=== PATIENT | female | born 1960 | race Caucasian/White ===

== ENCOUNTER 2016-08-04 12:26 | Inpatient (IN) ==
--- NOTE | 2016-07-31 21:58 | Discharge Summary ---
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 Will Use oxycodone for breakthrough pain only. Qualifiers: Chronic pain type: other chronic pain Qualified Code(s): G89.29 - Other chronic pain - Discharge Medications Prescriptions: Cyclobenzaprine [Flexeril] 10 mg PO TID PRN #30 tablet PRN Reason: Spasms Home Medications: Albuterol Sulfate [Albuterol Inhaler] 2 puff PO Q4H PRN 10/22/15 [History] Fluticasone/Salmeterol [Advair 500-50 Diskus] 1 puff IH BID 10/22/15 [History] Rivaroxaban [Xarelto] 10 mg PO DAILY 10/22/15 [History] Pravastatin Sodium [Pravachol] 20 mg PO HS 12/07/15 [History] Albuterol Neb [Proventil Neb] 2.5 mg IH Q4HR PRN 30 Days 12/28/15 [Rx] Metoprolol [Lopressor] 25 mg PO BID 06/10/16 [History] Zolpidem [Ambien] 10 mg PO HS 06/10/16 [History] OxyCODONE Immed Rel [Roxicodone 5 MG] 5 mg PO DAILY #20 tablet 08/04/16 [Rx] Oxycodone HCl [Oxaydo] 5 mg PO Q6H PRN 08/04/16 [History] Cyclobenzaprine [Flexeril] 10 mg PO TID PRN #30 tablet 08/07/16 [Rx] Allergies/Adverse Reactions: Allergies codeine Adverse Reaction (Verified 08/04/16 13:25) Nausea morphine Adverse Reaction (Verified 08/04/16 13:25) Vomiting Primary care physician: Tabitha Stallworth, - Patient Status Disposition: Home, Self-Care Condition: Good - Discharge Instructions Follow Up With: Tabitha Stallworth MD [Primary Care Provider] - - Hospital Course Hospital course: Ms. Mckenna is a 55 year old female - Time Spent with Patient Total time spent providing and/or coordinating discharge services: <Aidan Dow - Last Filed: 08/07/16 07:31> Date of Encounter: 08/07/16 Time of Encounter: 07:29 - Discharge Diagnosis (1) Hyperlipidemia Priority: Secondary Status: Chronic Qualifiers: Hyperlipidemia type: unspecified Qualified Code(s): E78.5 - Hyperlipidemia , unspecified (2) Arthritis of knee, left Priority: Primary Status: Acute (3) COPD (chronic obstructive pulmonary disease) Priority: Secondary Status: Chronic Qualifiers: COPD type: unspecified COPD Qualified Code(s): J44.9 - Chronic obstructive pulmonary disease, unspecified (4) Lung mass Priority: Secondary Status: Chronic (5) Factor V deficiency Status: Chronic (6) Hypertension Priority: Secondary Status: Chronic Qualifiers: Hypertension type: essential hypertension Qualified Code(s): I10 - Essential (primary) hypertension (7) Acute blood loss anemia Priority: Primary Status: Acute Primary care physician: Tabitha Stallworth, - Patient Status Functional capacity at discharge: uses cane/walker Overall status at discharge: patient is progressing back to baseline - Hospital Course Hospital course: Ms. Mckenna is a 55 year old female uneventful postop course, received antibiotics and PT. Patient on xeralto for anticoagulation secondary to coagulopathy. DC stable condition - Time Spent with Patient Total time spent providing and/or coordinating discharge services:
--- NOTE | 2016-08-04 13:02 | History & Physical Report ---
Date of Encounter: 08/04/16 Time of Encounter: 13:01 24 Hour HP Update - Instructions Instructions: If the History and Physical is less than 30 days old and was completed prior to A.M. admission and or procedure and has NOT been updated on calendar day of procedure please complete this update prior to performing procedure. - Update Patient reports changes in Medical Condition: No Changes in assessment/condition: No Changes in Medication: No Preop tests/diagnostics Reviewed: Yes Surgery Remains Indicated: Yes Consent for Planned Operative Procedure(s) Verified: Yes - Pre-Operative Checklist Preoperative Checklist Indicated: No Prophylactic Antibiotic Ordered: Yes Is VTE Prophylaxis Indicated?: Yes
[2016-08-04] MEDS ORDERED: CeFAZolin Pre 2,000 MG/100 ML 2,000 MG/100 ML BAG IVPB ONE (13:09)
[2016-08-04] MEDS ORDERED: Ringers Solution, Lactated 1,000 ML IVC SCH ×2 (13:15→17:04)
[2016-08-04] MEDS: Albuterol 2.5 MG/3 ML NEBULIZER IH ONE ×2 (13:24→13:35)
[2016-08-04] MEDS ORDERED: *HR* FentaNYL (PF) 100 MCG/2 ML VIAL ONE (13:30)
[2016-08-04] MEDS ORDERED: *HR* Propofol 200 MG/20 ML VIAL IVP ONE (13:31)
[2016-08-04] MEDS ORDERED: *HR* Midazolam HCl 2 MG/2 ML VIAL ONE (13:31)
[2016-08-04] MEDS ORDERED: Lidocaine -MPF 2% 2 ML VIAL ONE (13:32)
[2016-08-04] MEDS ORDERED: Scopolamine Patch 1.5 MG PATCH.TD72 TD ONE (13:36)
--- NOTE | 2016-08-04 13:37 | Anesthesia Evaluation PreOp ---
Date of Encounter: 08/04/16 Time of Encounter: 13:35 - Past History Planned Operation: l tka Cardiac History: Denies any Significant Hx, HTN, Hyperlipidemia, Other (echo : ef 60, nl rv) Pulmonary History: Asthma, COPD, Other (h/o pe x 5 for thrombophilic d/o) WINE MANAGER History: Denies Any Significant HX, Other (no glaucoma, fibromyalgia, depression) Other Medical History: Renal (one kidney, "functions well"), GERD Anesthesia History: No Prior Anesthetic Complications, Past Anesthesia (PONV, hysterect, appy, l knee, a port , wrist, l4/5, hiatal hernia, r knee arth) Alcohol Use: none Drug use: none Medications and Allergies Albuterol Sulfate [Albuterol Inhaler] 2 puff PO Q4H PRN 10/22/15 [History] Fluticasone/Salmeterol [Advair 500-50 Diskus] 1 puff IH BID 10/22/15 [History] Rivaroxaban [Xarelto] 10 mg PO DAILY 10/22/15 [History] Pravastatin Sodium [Pravachol] 20 mg PO HS 12/07/15 [History] Albuterol Neb [Proventil Neb] 2.5 mg IH Q4HR PRN 30 Days 12/28/15 [Rx] Metoprolol [Lopressor] 25 mg PO BID 06/10/16 [History] Zolpidem [Ambien] 10 mg PO HS 06/10/16 [History] OxyCODONE Immed Rel [Roxicodone 5 MG] 5 mg PO DAILY #20 tablet 08/04/16 [Rx] Oxycodone HCl [Oxaydo] 5 mg PO Q6H PRN 08/04/16 [History] Allergies codeine Adverse Reaction (Verified 08/04/16 13:25) Nausea morphine Adverse Reaction (Verified 08/04/16 13:25) Vomiting - Meds/Allergy Pre-op Review Medications Reviewed: Yes (xarelto off x 4 days) Allergies Reviewed: Yes Beta Blockers on Current Med List: Yes If Beta Blockers taken, Date/Time (Last Dose taken): metoprolol 08/03 19:00 Anesthesia Results - Labs Laboratory Tests 07/25/16 07/25/16 07/25/16 10:38 10:38 10:38 Hgb 12.5 Hct 37.0 Plt Count 199 PT 18.3 H INR 1.7 APTT 49.4 H Sodium 139 Potassium 4.0 Creatinine 0.84 - Imaging EKG: report reviewed (sr, ace) Anesthesia Exam Vital Signs/O2 Sat/Glucose, Most Current Temp Pulse Resp BP Pulse Ox 08/04/16 13:25 18 99 08/04/16 12:40 97.6 F 83 18 136/72 99 O2 Sat Height 1.63 m Height 1.63 m Height 1.63 m Weight 94.801 kg Weight 94.801 kg Weight 94.801 kg O2 Sat by Pulse Oximetry 99 O2 Sat by Pulse Oximetry 99 Vital Signs Temp Pulse Resp BP Pulse Ox 97.6 F 83 18 136/72 99 08/04/16 12:40 08/04/16 12:40 08/04/16 12:40 08/04/16 12:40 08/04/16 12:40 Height: 1.63 Weight: 94 NPO (# of Hours): >8 - HEENT Pupil (Motor): Pupils equal, EOMI Mallampati: II Teeth: Normal Oral Opening: Greater than 3 - WINE MANAGER LOC: Oriented WINE MANAGER Motor: Normal RUE, Normal LUE, Normal RLE, Normal LLE, Normal Face WINE MANAGER Sensory: Normal: RUE, LUE, RLE, LLE, Face - Cardiac Rhythm: Regular Murmur: None - Pulmonary Breath Sounds: bilateral Clear Respiratory Effort: Symmetrical Anesthesia Assess/Plan ASA Score: 2 Modified Juancarlos Scale for Level of Consciousness: Cooperative, oriented, and tranquil Anesthetic Plan: General, Regional Monitoring Plan: Standard Monitors Recovery Plan: PACU
[2016-08-04] MEDS ORDERED: Bupivacaine/Clonidine Syringe 1 EACH SYRINGE ONE (13:54)
[2016-08-04] MEDS ORDERED: ROPIVACAINE HCL/PF 0.5% 30 ML VIAL ONE (14:05)
--- NOTE | 2016-08-04 14:59 | Anesthesia Procedures ---
Date of Encounter: 08/04/16 Time of Encounter: 14:05 Procedures: Anesthesia - Nerve Block Procedure Date: 08/04/16 Time: 14:05 Allergies/Adv Reactions: codeine Adverse Reaction (Verified 08/04/16 13:25) Nausea morphine Adverse Reaction (Verified 08/04/16 13:25) Vomiting Pre-op Diagnosis: left knee oa Surgical Procedure: left tka Checklist: Correct Patient Identifier ( ), Correct procedure, History checked Correct side: Left Blood Thinner: Yes Monitor Applied: EKG, BP, Pulse Oximetry Supplemental Oxygen via Nasal Cannula (L/min): 2 Sedation: Versed (mg): 2 Sedation: Fentanyl (mcg): 100 Indication: Post Op Analgesia Block Type: Femoral, Other (iPACK) Catheter placed: No Sterile Technique: Yes Ultrasound used: Yes Anatomy identified: Yes Visual spread of Local: Yes Neuro Stimulation: No Prep: Chlorhexadine Needle: 22 x 50 mm Stimuplex (femoral, 30cc 0.5% ropiv), 21 x 150 mm Stimuplex ( iPACK 20cc 0.25% bupiv) Local: 0.25% Bupivicaine w/Clonidine 20 mcg/cc, Ropivacaine Volume (cc): 50 Number of Attempts: 1 Complications: None/effective block Vitals: Vital Signs/O2 Sat/Glucose, Most Recent Temp Pulse Resp BP Pulse Ox 97.6 F 98 16 151/72 99 08/04/16 12:40 08/04/16 14:08 08/04/16 14:08 08/04/16 14:08 08/04/16 14:08 Vital Signs/O2 Sat, Most Current Temp Pulse Resp BP Pulse Ox 97.6 F 98 16 151/72 99 08/04/16 12:40 08/04/16 14:08 08/04/16 14:08 08/04/16 14:08 08/04/16 14:08 Comments: peripheral nerve blocks under ultrasound for postoperative pain per dr coello request
[2016-08-04] MEDS ORDERED: Naloxone 0.4 MG/ML INJ IVP PRN ×2 (15:09→17:04)
[2016-08-04] MEDS ORDERED: *HR* Labetalol 100 MG/20 ML MDV IVP PRN (15:09)
--- NOTE | 2016-08-04 15:13 | Orthopedic Operative Note ---
Date of procedure: 08/04/16 Pre-op diagnosis: Left knee arthritis Post-op diagnosis: same Procedure: Procedure: Left Total knee replacement Estimated blood loss: 200 cc Hardware: Arthrex Femur: 6 Tibia: 4 PS insert: 10 Patella:34 Exam Under anesthesia: Full flexion full extension no instability Procedural Notes:grade 3 OA medial and patellofemoral joint Operative procedure: The patient was brought to the operating room and placed on the operating room table. After general anesthesia was administered the operative knee was examined. Findings were noted in the exam under anesthesia. The operative extremity was prepped and draped in sterile surgical fashion. The patient received IV antibiotics prior to skin incision. A standard midline incision was made centered over the patella. The incision was made through the skin and subcutaneous tissue. A medial parapatellar tendon approach was performed. Care was taken to preserve tissue along the medial aspect of the patella. And to protect the patella tendon. The deep MCL was released off the medial tibia. The infra patella fat pad was excised. Knee was brought into flexion. Patient noted to have grade 3 OA medial and patellofemoral joint. The entry hole was made for the intramedullary femoral guide. The guide was seated in 6 degrees of valgus. Anterior cut was made followed by the distal cut. The ACL the PCL the medial and the lateral menisci were excised. The tibia was subluxed forward. The entry hole was made for the intramedullary tibial guide. Guide was seated to resect 2 mm off the more abnormal side. The knee was brought into flexion the distal femur was sized 6. The femoral guide was seated , the anterior cut was made followed by the posterior condylar cut, followed by the chamfer cuts. The finishing guide was seated the box cut was made and the lug holes were drilled. The tibia was sized 4, the tibial tray was seated and prepared with the large drill followed by the fin cutter. Trial reduction revealed full extension no varus valgus instability with the appropriate 10 PS Audrey. The patella was everted and cut was made at the level of the insertion of the quadriceps and patella tendon. The patella was sized 34 the guide was seated and the lug holes are drilled. Trial reduction revealed excellent patella tracking. All trial components were removed all bony surfaces were irrigated. The tibia was cemented first followed by the femur. The 10 PS Audrey was seated and the knee was brought into full extension. The patella was cemented and held in place with the patellar holding clamp. After the cement had hardened, the knee sat for 2 minutes with a Betadine saline solution. The knee was then irrigated out with 2 L of pulse irrigation. The extensor mechanism was closed with #2 FiberWire suture and #2 PDS suture. The subcutaneous tissue was then irrigated and closed deep with #1 PDS suture superficially with 0 PDS suture and skin was closed with skin eli. The patient was then placed in a sterile dressing and a postoperative brace extubated and transferred to recovery room in stable condition. Anesthesia: GETA Surgeon: Aidan Dow Condition: stable Disposition: PACU
[2016-08-04] MEDS: *HR* HYDROmorphone (PF) 1 MG/ML SYRINGE IVP PRN ×6 (15:23→21:34)
[2016-08-04 15:48] LABS: Hemoglobin 10.9 g/dL (11.5-15.4)
[2016-08-04] MEDS: *HR* Promethazine 25 MG/ML VIAL IVP PRN ×2 (15:55→16:01)
[2016-08-04] MEDS ORDERED: Acetaminophen IV 1,000 MG/100 ML INFUS..BTL IVPB ONE (15:57)
[2016-08-04] MEDS ORDERED: *HR* HYDROmorphone (PF) 1 MG/ML SYRINGE IVP PRN (16:13)
--- NOTE | 2016-08-04 16:20 | Anesthesia Evaluation Post Op ---
Date of Encounter: 08/04/16 Time of Encounter: 16:19 - Vital Signs Vital Signs: Vital Signs/O2 Sat/Glucose, Most Current Temp Pulse Resp BP Pulse Ox 08/04/16 16:05 69 14 92/57 99 08/04/16 15:55 66 14 94/56 98 08/04/16 15:45 97.6 F 70 14 94/56 99 08/04/16 15:35 63 16 86/54 98 08/04/16 15:25 77 16 102/71 97 08/04/16 15:15 97.3 F L 80 16 133/81 98 08/04/16 14:08 98 16 151/72 99 08/04/16 13:25 18 99 08/04/16 12:40 97.6 F 83 18 136/72 99 - Lungs Lungs: Clear Ascult./Percussion - Airway Airway: Non-obstructed - Cardiovascular Regular Rate - Mental Status Mental Status: Alert & Oriented, Answers Appropriately - Pain Pain Scale: 3 - Nausea Vomiting Nausea Vomiting: Not Present - Hydration Hydration: Tolerates oral liquids - Discharge PostOp Status: Discharge Patient to home
[2016-08-04] MEDS ORDERED: MOM Conc 10 ML UD.LIQ PO PRN (17:04)
[2016-08-04] MEDS ORDERED: Sennosides 8.6 MG TABLET PO PRN (17:04)
[2016-08-04] MEDS ORDERED: Albuterol 2.5 MG/3 ML NEBULIZER IH PRN (17:04)
[2016-08-04] MEDS ORDERED: Temazepam 15 MG CAPSULE PO PRN (17:04)
[2016-08-04] MEDS ORDERED: *HR* OxyCODONE Immed Rel 5 MG TABLET PO PRN (17:04)
[2016-08-04] MEDS: *HR* OxyCODONE Immed Rel 5 MG TABLET PO PRN (17:35)
[2016-08-04] MEDS: Ondansetron 4 MG/2 ML VIAL IVP PRN (17:38)
[2016-08-04] MEDS ORDERED: *HR* Enoxaparin 30 MG/0.3 ML SYRINGE SQ SCH (18:00)
[2016-08-04] MEDS: Budesonide/Formoterol 160/4.5 MDI IH SCH (20:23)
[2016-08-04] MEDS: ceFAZolin 2,000 MG in D5% in Water 100 ML IVPB SCH (20:41)
[2016-08-05] MEDS: *HR* OxyCODONE Immed Rel 5 MG TABLET PO PRN ×4 (01:08→23:30)
[2016-08-05] MEDS: Ondansetron 4 MG/2 ML VIAL IVP PRN ×2 (04:01→11:14)
[2016-08-05] MEDS: *HR* HYDROmorphone (PF) 1 MG/ML SYRINGE IVP PRN ×6 (04:02→22:11)
[2016-08-05] MEDS: ceFAZolin 2,000 MG in D5% in Water 100 ML IVPB SCH (04:59)
[2016-08-05 07:01] LABS: Hematocrit 29.1 % (35.3-44.9); Hemoglobin 9.4 g/dL (11.5-15.4)
[2016-08-05 07:09] LABS: BUN/Creatinine Ratio 24 (6-26); Blood Urea Nitrogen 20 mg/dL (7-20); Carbon Dioxide 23 mEq/L (19-29); Chloride 104 mEq/L (98-109); Glucose 148 mg/dL (70-99); Osmolality,Calculated 287 (280-300); Potassium 4.4 mEq/L (3.5-4.5); Sodium 136 mEq/L (136-145); eGFR For African Americans > 60 (> 60); eGFR For Non-African Americans > 60 (> 60)
[2016-08-05] MEDS: *HR* Rivaroxaban 10 MG TABLET PO SCH (08:04)
--- NOTE | 2016-08-05 08:37 | Orthopedics Progress Note ---
Date of Encounter: 08/05/16 Time of Encounter: 08:37 - Assessment and Plan (1) Hyperlipidemia Current Visit: Yes Status: Chronic Qualifiers: Hyperlipidemia type: unspecified Qualified Code(s): E78.5 - Hyperlipidemia , unspecified (2) Arthritis of knee, left Current Visit: Yes Status: Acute (3) COPD (chronic obstructive pulmonary disease) Current Visit: No Status: Chronic Qualifiers: COPD type: unspecified COPD Qualified Code(s): J44.9 - Chronic obstructive pulmonary disease, unspecified (4) Lung mass Current Visit: No Status: Chronic (5) Factor V deficiency Current Visit: No Status: Chronic (6) Hypertension Current Visit: No Status: Chronic Qualifiers: Hypertension type: essential hypertension Qualified Code(s): I10 - Essential (primary) hypertension Subjective Interval history: Patient was seen this morning doing well without complaints. Afebrile vital signs stable. Operative extremity: Neurovascularly intact Dressing clean dry and intact Calves nontender Assessment and plan: Continue with postoperative care hb 9.4 Objective Vital signs: Vital Signs Temp Pulse Resp BP Pulse Ox 08/05/16 08:17 98 08/05/16 07:15 98.3 F 68 14 105/70 98 08/05/16 04:29 98.3 F 67 16 100/67 94 L 08/05/16 00:34 97.5 F L 67 15 113/70 99 08/04/16 20:23 16 99 08/04/16 19:05 97.5 F L 74 17 101/64 99 08/04/16 18:00 97.4 F L 69 16 100/71 100 08/04/16 17:30 97.5 F L 70 16 108/68 99 08/04/16 17:05 97.6 F 67 14 136/84 99 08/04/16 16:45 97.8 F 71 10 100/50 100 08/04/16 16:30 69 12 95/53 98 08/04/16 16:15 97.8 F 73 11 101/56 95 08/04/16 16:05 69 14 92/57 99 08/04/16 15:55 66 14 94/56 98 08/04/16 15:45 97.6 F 70 14 94/56 99 08/04/16 15:35 63 16 86/54 98 08/04/16 15:25 77 16 102/71 97 08/04/16 15:15 97.3 F L 80 16 133/81 98 08/04/16 14:08 98 16 151/72 99 08/04/16 13:25 18 99 08/04/16 12:40 97.6 F 83 18 136/72 99 Intake and Output 08/04/16 08/05/16 08/05/16 23:59 07:59 15:59 Intake Total 200 / 200 100 / 100 Balance 200 / 200 100 / 100 Intake: IV Fluids 200 / 200 100 / 100 Ofirmev 1,000 mg In 100 100 / 100 ml @ 400 mls/hr IVPB ONCE ONE Rx#:[id number] Ancef 2,000 MG In 100 / 100 100 / 100 Dextrose 5% 100 ML @ 200 mls/hr IVPB Q8H [facility] Rx#: [id number] - Labs CBC & BMP: 08/05/16 06:45 08/05/16 06:45 Labs: Abnormal lab results Hgb 9.4 g/dL (11.5-15.4) L D 08/05/16 06:45 Hct 29.1 % (35.3-44.9) L 08/05/16 06:45 Glucose 148 mg/dL (70-99) H 08/05/16 06:45 Calcium 8.0 mg/dL (8.6-10.8) L 08/05/16 06:45 - VTE Documentation of Mechanical Device: Venous foot pump, device Consult Discharge Plan - Plan Referrals: Tabitha Stallworth MD [Primary Care Provider] -
[2016-08-05] MEDS: Budesonide/Formoterol 160/4.5 MDI IH SCH ×2 (12:08→21:16)
[2016-08-05] MEDS: Acetaminophen 325 MG TABLET PO PRN (21:04)
[2016-08-06] MEDS: *HR* HYDROmorphone (PF) 1 MG/ML SYRINGE IVP PRN ×5 (02:10→20:30)
[2016-08-06] MEDS: *HR* OxyCODONE Immed Rel 5 MG TABLET PO PRN ×5 (04:41→23:39)
[2016-08-06 05:11] LABS: Hematocrit 27.5 % (35.3-44.9); Hemoglobin 8.9 g/dL (11.5-15.4)
[2016-08-06 05:30] LABS: BUN/Creatinine Ratio 21 (6-26); Blood Urea Nitrogen 16 mg/dL (7-20); Calcium 8.4 mg/dL (8.6-10.8); Carbon Dioxide 26 mEq/L (19-29); Chloride 102 mEq/L (98-109); Glucose 116 mg/dL (70-99); Osmolality,Calculated 282 (280-300); Potassium 4.4 mEq/L (3.5-4.5); Sodium 135 mEq/L (136-145); eGFR For African Americans > 60 (> 60); eGFR For Non-African Americans > 60 (> 60)
--- NOTE | 2016-08-06 06:42 | Orthopedics Progress Note ---
Date of Encounter: 08/06/16 Time of Encounter: 06:41 - Assessment and Plan (1) Hyperlipidemia Current Visit: Yes Status: Chronic Qualifiers: Hyperlipidemia type: unspecified Qualified Code(s): E78.5 - Hyperlipidemia , unspecified (2) Arthritis of knee, left Current Visit: Yes Status: Acute (3) COPD (chronic obstructive pulmonary disease) Current Visit: No Status: Chronic Qualifiers: COPD type: unspecified COPD Qualified Code(s): J44.9 - Chronic obstructive pulmonary disease, unspecified (4) Lung mass Current Visit: No Status: Chronic (5) Factor V deficiency Current Visit: No Status: Chronic (6) Hypertension Current Visit: No Status: Chronic Qualifiers: Hypertension type: essential hypertension Qualified Code(s): I10 - Essential (primary) hypertension Subjective Interval history: Patient was seen this morning calf pain Afebrile vital signs stable. Operative extremity: Neurovascularly intact Dressing clean dry and intact Calves nontender Assessment and plan: Continue with postoperative care doppler today Objective Vital signs: Vital Signs Temp Pulse Resp BP Pulse Ox 08/06/16 05:10 97.9 F 80 15 106/64 96 08/06/16 00:15 99 F 86 15 111/72 94 L 08/05/16 21:16 14 99 08/05/16 20:39 98.2 F 90 16 93/63 99 08/05/16 18:18 98 08/05/16 14:55 98.4 F 73 16 105/72 98 08/05/16 12:08 18 95 08/05/16 11:31 98.4 F 81 16 113/73 95 08/05/16 08:17 98 08/05/16 07:15 98.3 F 68 14 105/70 98 Intake and Output 08/05/16 08/05/16 08/06/16 15:59 23:59 07:59 Intake Total 900 / 900 425 / 425 Balance 900 / 900 425 / 425 Intake: Oral 900 / 900 425 / 425 Other: # Voids 1 - Labs CBC & BMP: 08/06/16 04:55 08/06/16 04:55 Labs: Abnormal lab results Hgb 8.9 g/dL (11.5-15.4) L 08/06/16 04:55 Hct 27.5 % (35.3-44.9) L 08/06/16 04:55 Sodium 135 mEq/L (136-145) L 08/06/16 04:55 Glucose 116 mg/dL (70-99) H 08/06/16 04:55 Calcium 8.4 mg/dL (8.6-10.8) L 08/06/16 04:55 - VTE Documentation of Mechanical Device: Venous foot pump, device Consult Discharge Plan - Plan Referrals: Tabitha Stallworth MD [Primary Care Provider] -
[2016-08-06] MEDS: Budesonide/Formoterol 160/4.5 MDI IH SCH ×2 (08:19→20:25)
[2016-08-06] MEDS: *HR* Rivaroxaban 10 MG TABLET PO SCH (09:07)
[2016-08-06] MEDS: Gabapentin 300 MG CAPSULE PO SCH ×3 (09:07→20:31)
[2016-08-06] MEDS: Ondansetron 4 MG/2 ML VIAL IVP PRN (09:11)
[2016-08-07] MEDS: *HR* HYDROmorphone (PF) 1 MG/ML SYRINGE IVP PRN ×2 (04:41→19:35)
[2016-08-07 04:47] LABS: Hematocrit 25.4 % (35.3-44.9); Hemoglobin 8.4 g/dL (11.5-15.4)
[2016-08-07 04:56] LABS: BUN/Creatinine Ratio 16 (6-26); Blood Urea Nitrogen 13 mg/dL (7-20); Calcium 8.2 mg/dL (8.6-10.8); Carbon Dioxide 25 mEq/L (19-29); Chloride 98 mEq/L (98-109); Glucose 125 mg/dL (70-99); Osmolality,Calculated 276 (280-300); Potassium 4.2 mEq/L (3.5-4.5); Sodium 132 mEq/L (136-145); eGFR For African Americans > 60 (> 60); eGFR For Non-African Americans > 60 (> 60)
--- NOTE | 2016-08-07 07:33 | Orthopedics Progress Note ---
Date of Encounter: 08/07/16 Time of Encounter: 07:32 - Assessment and Plan (1) Hyperlipidemia Current Visit: Yes Status: Chronic Qualifiers: Hyperlipidemia type: unspecified Qualified Code(s): E78.5 - Hyperlipidemia , unspecified (2) Arthritis of knee, left Current Visit: Yes Status: Acute (3) COPD (chronic obstructive pulmonary disease) Current Visit: No Status: Chronic Qualifiers: COPD type: unspecified COPD Qualified Code(s): J44.9 - Chronic obstructive pulmonary disease, unspecified (4) Lung mass Current Visit: No Status: Chronic (5) Factor V deficiency Current Visit: No Status: Chronic (6) Hypertension Current Visit: No Status: Chronic Qualifiers: Hypertension type: essential hypertension Qualified Code(s): I10 - Essential (primary) hypertension (7) Acute blood loss anemia Current Visit: Yes Status: Acute Subjective Interval history: Patient was seen this pain better doppler negative Afebrile vital signs stable. Operative extremity: Neurovascularly intact Dressing clean dry and intact Calves nontender Assessment and plan: Continue with postoperative care HCT 25.4 asymptomatic dc today Objective Vital signs: Vital Signs Temp Pulse Resp BP Pulse Ox 08/07/16 06:41 97.6 F 93 16 118/73 95 08/07/16 04:30 100 117/76 94 L 08/06/16 23:54 97.8 F 111 18 111/68 96 08/06/16 20:25 17 99 08/06/16 20:00 97.7 F 114 18 117/75 97 08/06/16 15:07 99.1 F 91 16 102/70 93 L 08/06/16 10:36 98.7 F 88 16 138/80 96 08/06/16 08:20 16 96 08/06/16 06:55 98.7 F 80 16 121/79 96 Intake and Output 08/06/16 08/06/16 08/07/16 15:59 23:59 08:59 Intake Total 200 / 200 Balance 200 / 200 Intake: Oral 200 / 200 Other: # Voids 1 1 - Labs CBC & BMP: 08/07/16 04:30 08/07/16 04:30 Labs: Abnormal lab results Hgb 8.4 g/dL (11.5-15.4) L 08/07/16 04:30 Hct 25.4 % (35.3-44.9) L 08/07/16 04:30 Sodium 132 mEq/L (136-145) L 08/07/16 04:30 Glucose 125 mg/dL (70-99) H 08/07/16 04:30 Calculated Osmolality 276 (280-300) L 08/07/16 04:30 Calcium 8.2 mg/dL (8.6-10.8) L 08/07/16 04:30 - VTE Documentation of Mechanical Device: Venous foot pump, device Consult Discharge Plan - Plan Referrals: Tabitha Stallworth MD [Primary Care Provider] - Prescriptions: Cyclobenzaprine [Flexeril] 10 mg PO TID PRN #30 tablet PRN Reason: Spasms
[2016-08-07] MEDS: *HR* Rivaroxaban 10 MG TABLET PO SCH (08:00)
[2016-08-07] MEDS: Gabapentin 300 MG CAPSULE PO SCH ×3 (08:00→21:46)
[2016-08-07] MEDS: Budesonide/Formoterol 160/4.5 MDI IH SCH ×2 (10:08→20:31)
[2016-08-07] MEDS ORDERED: 0.9 % Sodium Chloride 250 ML IVC PRN (10:13)
[2016-08-07] MEDS ORDERED: Furosemide 20 MG/2 ML VIAL IVP PRN (11:55)
[2016-08-07] MEDS: *HR* OxyCODONE Immed Rel 5 MG TABLET PO PRN ×3 (12:25→21:45)
--- NOTE | 2016-08-07 15:07 | Venous Imaging Report ---
LE Venous Duplex Patient Name:Marium Mckenna Order Number:[id number] Procedure Date:08/06/2016 Date:1960ge:55 yrs Gender:Female Location:[facility] Room #: [id number] Materials Technician:Chana Salazar RVT Referring MD:Aidan Dow MD director of critical care:Tabitha Stallworth MD Reading MD:Deion Moy MD , FACS Secondary Indications: Risk Factors Yes/No Previous surgery Yes Anticoagulants Yes Hx of PE Yes Impressions: Left lower extremity: normal superficial and deep exam. Right lower extremity: normal contralateral exam. Recommendations: Test completed on 08/06/2016 at 2:20:00 pm. Critical findings reported to Luis GIL in person at 2:20:00 pm on 08/06/2016 by Chana Salazar RVT. Findings Venous Duplex Results: Right: Venous imaging of the lower extremity reveals full patency and normal vessel compressibility of the right common femoral. Doppler signals in the evaluated veins were normal. Left: Venous imaging of the lower extremity reveals full patency and normal vessel compressibility of the left distal iliac, left common femoral, left superficial femoral, left popliteal, left posterior tibial, left peroneal, left great saphenous and left lesser saphenous. Doppler signals in the evaluated veins were normal. Prior Study: No prior study available for comparison. Updated by Deion Moy MD, FACS on 08/07/2016 3:03:42 PM Deion Moy MD electronically signed on 08/07/2016 3:04:19 PM with status of Final
[2016-08-07] MEDS: Acetaminophen 325 MG TABLET PO PRN (18:12)
[2016-08-07 19:33] LABS: Hematocrit 30.3 % (35.3-44.9)
[2016-08-07 19:34] LABS: Hemoglobin 10.1 g/dL (11.5-15.4)
[2016-08-08] MEDS: *HR* HYDROmorphone (PF) 1 MG/ML SYRINGE IVP PRN ×2 (00:42→06:45)
[2016-08-08 01:18] LABS: Bilirubin,Urine Negative (Negative); Blood,Urine Negative (Negative); Clarity,Urine Clear (Clear); Color,Urine Yellow (Yellow); Glucose,Urine (UA) Normal (Normal); Ketones,Urine Negative (Negative); Leukocyte Esterase,Urine Negative (Negative); Nitrite,Urine Negative (Negative); PH,Urine 5.5 pH Units (5.0-8.0); Protein,Urine Negative (Neg-Trace); Urobilinogen,Urine Normal (Normal)
[2016-08-08 01:29] LABS: Bacteria,Urine None Seen per hpf (None-Few); Hyaline Casts,Urine None Seen per lpf (None-Few); RBC,Urine 0-3 per hpf (0-3); Squamous Epithelial Cell,Urine Few per lpf (None-Few); WBC,Urine 0-3 per hpf (0-3)
[2016-08-08] MEDS: *HR* OxyCODONE Immed Rel 5 MG TABLET PO PRN ×2 (04:03→08:14)
--- NOTE | 2016-08-08 06:41 | Orthopedics Progress Note ---
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 Operative extremity: Neurovascularly intact Dressing clean dry and intact Calves nontender Assessment and plan: Continue with postoperative care when patient began PT became symptomatic to anemia, dc held patient received blood dc hct 30 dc today Objective Vital signs: Vital Signs Temp Pulse Resp BP Pulse Ox 08/08/16 06:32 98.6 F 102 20 134/75 100 08/08/16 04:52 98.4 F 90 15 112/70 97 08/08/16 00:02 99.3 F 102 14 95/59 98 08/07/16 20:31 14 98 08/07/16 20:25 98.4 F 108 12 112/62 96 08/07/16 19:49 100.7 F H 120 14 133/78 98 08/07/16 19:08 100.7 F H 120 14 133/78 98 08/07/16 18:08 100.2 F H 123 16 141/80 98 08/07/16 17:53 99.7 F H 121 15 121/78 96 08/07/16 17:05 100.9 F H 111 14 117/73 100 08/07/16 15:46 99.6 F 106 10 133/76 100 08/07/16 14:26 98.9 F 109 12 128/73 97 08/07/16 14:11 99.4 F 111 14 131/82 98 08/07/16 10:08 16 118/73 102 H 08/07/16 06:41 97.6 F 93 16 118/73 95 Intake and Output 08/07/16 08/07/16 08/08/16 15:59 23:59 07:59 Intake Total 0 / 0 421 / 421 300 / 300 Output Total 300 / 300 Balance 0 / 0 421 / 421 0 / 0 Intake: Oral 300 / 300 Blood Product 0 / 0 421 / 421 Rbcs Leuko Poor As-1 0 / 0 294 / 294 Unit [id number] Rbcs Leuko Poor As-1 127 / 127 Unit [id number] Output: Urine 300 / 300 Other: # Voids 1 1 - Labs CBC & BMP: 08/07/16 19:30 08/07/16 04:30 Labs: Abnormal lab results Hgb 10.1 g/dL (11.5-15.4) L D 08/07/16 19:30 Hct 30.3 % (35.3-44.9) L 08/07/16 19:30 Sodium 132 mEq/L (136-145) L 08/07/16 04:30 Glucose 125 mg/dL (70-99) H 08/07/16 04:30 Calculated Osmolality 276 (280-300) L 08/07/16 04:30 Calcium 8.2 mg/dL (8.6-10.8) L 08/07/16 04:30 - VTE Documentation of Mechanical Device: Venous foot pump, device Consult Discharge Plan - Plan Additional Instructions: Discharge Instructions: Total Knee Replacement Please call [facility] ([phone]), your Primary Care Physician, or report to the Emergency Room if you have any of the following symptoms: Nausea, vomiting, fever greater that 101.5, swelling, chest pain, shortness of breath, increased pain/redness/drainage/odor for your incision site, numbness/ tingling, or any other concerning symptoms. ACTIVITY:Weight-bearing as tolerated. You may progress off support (cruthches or walker) as tolerated. MEDICATIONS: Upon discharge resume your home medications. Take all the medications as prescribed. Take a stool softener if taking narcotic pain medications. Stool softeners are only effective if you drink enough fluids. Drink 6-8 glass of water or fluids a day, unless this is not allowed for another health problem. Despite using stool softeners, if you haven't had a bowel movement in 3 days, please switch to a gentle laxative. Gentle laxatives are sold over the counter. You should have a bowel movement within 24 hours, if not call the office. You will be discharged from the hospital with a prescription for pain medication. You are encouraged to decrease the use of narcotic pain medication as tolerated. Should you require a refill, please call the office. [facility] prescribes narcotic pain medication for only 4-6 weeks after surgery. If you require pain medication beyond this time periord, you may be referred to your Primary Care Physician or to the Pain Clinic for further evaluation. Plan ahead for refills on pain medication as many narcotics either need to be picked up at the office or mailed. It is best to call 48-72 hours in advance of needing a prescription refill so you don't run out of medication. To help control the post-operative pain, you may take NSAIDs (Aleve,Advil, Motrin, ibuprofen, naprosyn) or Tylenol as prescribed on the bottle in addition to the pain medication. ANTICOAGULATION (blood thinners): Continue your Aspirin, Lovenox or Coumadin as prescribed to help prevent a blood clot in the leg or in the lungs. As long as your incision remains dry and you tolerate the NSAIDs (Aleve, Advil, Motrin, ibuprofen, naprosyn), it is OK to use the NSAIDS while you are taking your anticoagulation medication. Should your incision start to drain, stop the NSAID and contact our office. Common symptoms of blood clot in the legs include: localized pain, swelling, calf tenderness, redness or discoloration of the skin. Blood clot in the lung symptoms include: shortness of breath, rapid pulse, sweating, and chest pain that worsens with deep breathing, coughing up blood, lightheadedness, feelings of anxiety. If you experience any of these symptoms notify your physician immediately, go to the emergency room, or if having trouble breathing, call 911. WOUND CARE: Leave the dressing on for 7 days. You may change the dressing if it becomes saturated greater than 50%. You can shower but not a tub bath or submerge your incision in water. Wash your hands with antibacterial soap, rinse and dry prior to any wound care. If you have eli the visiting nurse or rehab facility can remove the stapes 10-14 days after surgery and place steri- strips across the wound. Leave the steri-strips in place until they fall off on their won. You may let water from the shower run on top of the steri-stirips. If you do not have a visiting nurse or rehab facility, you will need to return to the office at 10-14 days for the eli to be removed. FOLLOW-UP: Please follow up with your surgeon in the orthopedic clinic in 4 weeks from the day of surgery. If you have eli that need to be removed, you will need to come back to the office in 10-14 days from the day of surgery. Referrals: Tabitha Stallworth MD [Primary Care Provider] - Prescriptions: Cyclobenzaprine [Flexeril] 10 mg PO TID PRN #30 tablet PRN Reason: Spasms
[2016-08-08] MEDS: *HR* Rivaroxaban 10 MG TABLET PO SCH (08:13)
[2016-08-08] MEDS: Gabapentin 300 MG CAPSULE PO SCH (08:13)
[2016-08-08 10:38] VITALS: BP 105/61
[2016-08-08] MEDS: Budesonide/Formoterol 160/4.5 MDI IH SCH (10:40)
--- NOTE | 2016-08-08 15:38 | Electrocardiograph Report ---
[place] [address] Test Date: 2016-08-07 Pat Name: Marium Mckenna Department: 114 Room: [facility] Gender: F Backbreaker: : 1960 Requested By: Aidan Dow Order Number: [id number] Reading MD: Ambrose Ro MD Measurements Intervals [place] Rate: 124 P: 49 RI: 146 QRS: -24 QRSD: 107 T: 65 QT: 425 QTc: 498 Interpretive Statements SINUS TACHYCARDIA BORDERLINE LEFT AXIS DEVIATION VOLTAGE CRITERIA FOR LVH Poor R wave progression Electronically Signed On 08-08-2016 15:36:59 EDT by Ambrose Ro MD
== END 2016-08-08 10:55 | disposition home or self-care (01) | DRG 470 ==
LOC: SAMDAY 12:26 → 3NENU 16:56
PROVIDERS: ADMIT Orthopaedic Surgery; ATTEND Orthopaedic Surgery

== ENCOUNTER 2017-10-20 20:43 | Inpatient (IN) ==
[2017-10-20] MEDS ORDERED: 0.9 % Sodium Chloride 500 ML ONE (23:05)
[2017-10-21] MEDS ORDERED: Naloxone 0.4 MG/ML INJ IVP PRN ×2 (00:45→00:53)
[2017-10-21] MEDS ORDERED: Ondansetron 4 MG/2 ML VIAL IVP PRN (00:48)
[2017-10-21] MEDS ORDERED: Acetaminophen 325 MG TABLET PO PRN (00:53)
[2017-10-21] MEDS ORDERED: Isovue-370 500 ML INFUS..BTL IV ONE (00:57)
--- NOTE | 2017-10-21 01:02 | Internal Med History&Physical ---
Date of Encounter: 10/21/17 Time of Encounter: 00:58 Internal Medicine - H&P: HPI Chief complaint: Chest pain Admitted From: Hospital to Hospital Transfer Plans for Post Hospital Care: Home History of present illness: Ms. Mckenna is a 57 year old female history of factor V Leiden, recurrent PEs on anticoagulation, hyperlipidemia, hypertension presents for evaluation of chest pain. Patient was transferred from [facility] emergency department. Patient describes having sharp retrosternal chest pain that started at rest around 10: 00 this morning. Patient noted that the pain is been persistent since then. Patient notes the pain radiates to her neck, her back in her shoulder. Patient notes the pain is worse with deep inspiration. Patient reports some nausea but no vomiting. Patient also noted some diaphoresis. Patient denies any shortness of breath. Patient denies any abdominal pain. No fevers or cough. Patient states the pain is worse when she lays back. Patient denies a history of heart attacks or stents. Patient states that her last PE was diagnosed 3 or 4 years ago when she was on Coumadin and since then has been on Xarelto. Patient does not follow with hematology here. Her last dose Xarelto last night and is due for her evening dose tonight. Patient states at [facility] they tentatively do a CT scan of the chest but the peripheral IV was not adequate. Patient states that the nitroglycerin did not significantly help with her chest pain. Patient requested transfer to [place]. At the time of my evaluation, the patient was resting. Patient continues to complain of pain. Patient does have a nitroglycerin infusion going. Past Med Surg Social Fam HX - Past Medical History Medical history: arthritis, COPD, DVT, fibromyalgia, GERD, hypertension, pulmonary embolus, venous stasis, other Psychiatric history: depression - Past Surgical History Surgical History: appendectomy, herniorrhaphy, hysterectomy, orthopedic, other, other - Social History Smoking Status: Former smoker Smokeless Tobacco Status: No Alcohol use: none Drug use: none - Family History Mother Family Member Ethnicity: Non- Living Status: Still Living Hx Family Cardiac Disorders: Yes Hx Family Respiratory Disorders: No Hx Family Cancer: No Hx Family Endocrine Disorder: Yes Hx Family Neuromuscular Disorders: Yes Hx Family Neurologic Disorders: Yes Hx Family HEENT Disorders: No Hx Family Autoimmune Disorders: No Internal Medicine - H&P: Meds Amitriptyline [Elavil] 25 mg PO HS 04/20/17 [History] Atorvastatin [Lipitor] 40 mg PO HS 09/15/16 [History] Fluticasone/Vilanterol [Breo Ellipta 200-25 Mcg INH] 1 puff IH DAILY 09/15/16 [ History] Gabapentin [Neurontin] 800 mg PO TID 09/15/16 [History] Levalbuterol Tartrate [Xopenex Hfa] 2 puff IH Q6H PRN 09/15/16 [History] Lisinopril/Hydrochlorothiazide [Zestoretic 20-25 mg Tablet] 1 each PO DAILY [History] Metoprolol [Lopressor] 25 mg PO BID 09/15/16 [History] Ondansetron HCl [Zofran] 4 mg PO Q8H PRN 09/15/16 [History] OxyCODONE/APAP 10/325 [Percocet 10/325 MG] 1 each PO Q4HR PRN 09/15/16 [History] Rivaroxaban [Xarelto] 20 mg PO DAILY 09/15/16 [History] Sertraline [Zoloft] 100 mg PO DAILY 09/15/16 [History] Umeclidinium [place] [Incruse Ellipta] 1 puff IH DAILY 09/15/16 [History] Zolpidem [Ambien] 10 mg PO HS 09/15/16 [History] raNITIdine HCl [Zantac] 150 mg PO BID 09/15/16 [History] 3 Allergy/AdvReac Type Severity Reaction Status Date / Time codeine AdvReac Nausea Verified 09/15/16 12:59 morphine AdvReac Vomiting Verified 09/15/16 12:59 All Systems PM: A 10-system review of systems was performed and is negative for pertinent findings except as documented above in the HPI. - Constitutional Constitutional: as per HPI, no chills, no fever(s) - EENT Eyes: as per HPI Ears: as per HPI - Cardiovascular Cardiovascular ROS IM: as per HPI, chest pain, palpitations, no dyspnea, no dyspnea on exertion - Respiratory Respiratory: as per HPI, no cough, no dyspnea, no hemoptysis - Gastrointestinal Gastrointestinal: as per HPI - Genitourinary Genitourinary: as per HPI - Musculoskeletal Musculoskeletal ROS IM: as per HPI - Integumentary Integumentary IM: as per HPI - Neurological Neurological ROS: as per HPI - Constitutional Vitals: Temp Pulse Resp BP Pulse Ox 97.3 F L 76 14 106/72 95 10/21/17 00:47 10/21/17 00:47 10/21/17 00:47 10/21/17 00:47 10/21/17 00:47 General appearance: Present: cooperative, A&O X 3, obese, answers questions appropriately - Head Head exam: Present: atraumatic, normocephalic - Eye Eye exam: Present: EOMI, PERRL - ENT ENT exam: Present: mucous membranes moist, normal exam - Neck Neck exam general surgery: Present: full ROM, normal inspection, supple - Respiratory Respiratory exam: Present: CTAB. Absent: respiratory distress, rhonchi, tachypnea - Cardiovascular Cardiovascular exam: Present: +S1, +S2. Absent: JVD, RRR, systolic murmur, tachycardia Additional comments: Left upper chest wall port - GI/Abdominal GI/Abdominal exam: Present: normal bowel sounds, soft. Absent: tenderness - Extremities Exam Extremities exam: Present: radial pulses palpable and symmetrical. Absent: calf tenderness, pedal edema - Back Exam Back exam: Present: full ROM - Neurological Exam Neurological exam: Present: alert, CN II-XII intact - Skin Skin exam: Present: dry, warm. Absent: rash - Assessment and plan (1) Chest pain Current Visit: Yes Status: Acute Assessment and plan: Admitted for chest pain. Patient's workup was initiated Sue. Patient's 12- lead EKG obtained at 1923 Sue shows normal sinus rhythm with no ST elevation or T-wave inversions in V1 flattened T waves in V2 V3 and poor R-wave progression. Left axis deviation. Repeat EKG at 1252 shows normal sinus rhythm with left axis deviation flattened T waves in V1 and V2 T-wave inversion V3 V4 no ST elevation. Patient's high sensitivity troponin high sensitivity troponin at outside hospital was 0.056 with a delta troponin 2 hours less than 0.056. Patient denies having history of ACS in the past. Patient does have a history of recurrent pulmonary embolisms on Xarelto. PLAN -Will evaluate for PE, and trend troponins and get ECHO. If negative for PE, would continue further with ACS evaluation. -ASA daily -On Xarelto -Troponin trend -Nitro gtt d/c as the patient did not have relief of pain-Appears to be more consistent with PE. Qualifiers: Chest pain type: unspecified Qualified Code(s): R07.9 - Chest pain, unspecified (2) Factor V deficiency Current Visit: No Status: Chronic Assessment and plan: Anticoagulation as above. (3) Hypertension Current Visit: No Status: Chronic Assessment and plan: Will restart home meds, following the CTA ensuring the patient's kidney function. Qualifiers: Hypertension type: essential hypertension Qualified Code(s): I10 - Essential (primary) hypertension (4) Hyperlipidemia Current Visit: No Status: Chronic Assessment and plan: Start home meds Qualifiers: Hyperlipidemia type: unspecified Qualified Code(s): E78.5 - Hyperlipidemia , unspecified (5) DVT prophylaxis Current Visit: No Status: Acute Assessment and plan: On chronic anticoagulation. - Time Spent With Patient Total time spent is greater than 50% in coordination of care (as documented) at patient's floor/unit and/or counseling patient:
[2017-10-21] MEDS ORDERED: Nitroglycerin 25 MG/250 ML INFUS..BTL IVC SCH (01:15)
[2017-10-21] MEDS: Ringers Solution, Lactated 1,000 ML IVC SCH ×2 (01:30→14:40)
[2017-10-21 01:45] LABS: Basophils % 0.9 %; Eosinophils # 0.1 K/mcL (0.0-0.6); Eosinophils % 2.8 %; Hematocrit 33.4 % (35.3-44.9); Hemoglobin 11.4 g/dL (11.5-15.4); Immature Granulocytes % 0.4 % (0-4); Lymphocytes # 1.9 K/mcL (0.6-4.6); Lymphocytes % 40.6 %; Mean Corpuscular HGB Conc 34.1 g/dL (31.6-35.5); Mean Corpuscular Volume 90.8 fL (83.0-100.0); Mean Platelet Volume 10.2 fL (9.4-12.4); Monocytes # 0.5 K/mcL (0.0-1.3); Monocytes % 9.6 %; Neutrophils # 2.1 K/mcL (1.6-8.9); Platelet Count 191 K/mcL (140-400); Red Blood Count 3.68 M/mcL (3.82-4.97); Red Cell Distribution Width 13.2 % (11.5-14.5); Segmented Neutrophils % 45.7 %
[2017-10-21] MEDS ORDERED: *HR* Rivaroxaban 10 MG TABLET PO SCH ×2 (01:53→17:00)
[2017-10-21 01:55] LABS: INR 1.3; Prothrombin Time 13.7 Seconds (9.4-12.1)
--- NOTE | 2017-10-21 01:56 | Event Note ---
Date of Encounter: 10/21/17 Time of Encounter: 01:47 Patient was seen and examined. I agree with the H&P as written by the Resident Physician. Briefly, patient is 57 yo F with factor V Leiden, recurrent PEs on anticoagulation, hyperlipidemia, hypertension sent from [facility] for evaluation of chest pain. work up at [facility] was negative. EKG with T wave inversion in anteroseptal leads. Was started on nitro drip but that has not helped. Given her history of failing anticoags, she was sent to rule out PE. She is hemodynamcially stable. NAD RRR. S1, S2, no m/r/g Diminished breath sounds soft, NT, ND, +BS trace LE edema Will admit Trend cardiac enzymes CTA chest and rule out PE Will keep on Xarelto for now Repeat echo If work up negative, consider stress test inpatient/outpatient
[2017-10-21 01:57] LABS: Activated Partial Thrombo Time 34.2 Seconds (26.0-36.0)
[2017-10-21] MEDS ORDERED: *HR* FentaNYL (PF) 100 MCG/2 ML VIAL IVP PRN ×2 (01:57→02:51)
[2017-10-21 02:05] LABS: Troponin I < 0.03 ng/mL (< 0.04)
[2017-10-21 02:14] LABS: Alanine Aminotransferase 17 Units/L (7-52); Albumin 4.3 g/dL (3.5-5.7); Albumin/Globulin Ratio 1.5 (1.1-2.2); Alkaline Phosphatase 129 Units/L (34-104); Aspartate Amino Transferase 16 Units/L (13-39); BUN/Creatinine Ratio 25 (6-26); Bilirubin,Total 0.5 mg/dL (0.3-1.0); Blood Urea Nitrogen 18 mg/dL (6-20); Calcium 9.1 mg/dL (8.6-10.3); Carbon Dioxide 24 mEq/L (23-29); Chloride 104 mEq/L (98-107); Chol/HDL Ratio 3.3 (0-4.9); Cholesterol 178 mg/dL (< 200); Globulin 2.9 g/dL (2.4-3.5); Glucose 118 mg/dL (70-105); HDL Cholesterol 54 mg/dL (40-59); LDL Cholesterol,Calculated 99 mg/dL (0-99); Magnesium 1.7 mg/dL (1.6-2.6); Osmolality,Calculated 287 (280-300); Phosphorous 3.6 mg/dL (2.7-4.5); Potassium 3.7 mEq/L (3.5-5.1); Sodium 137 mEq/L (136-145); Total Protein 7.2 g/dL (6.4-8.9); Triglycerides 127 mg/dL (< 150); eGFR For African Americans > 60 (> 60); eGFR For Non-African Americans > 60 (> 60)
[2017-10-21] MEDS: OXYCODONE Oral CONC 10 MG/0.5 ML ORAL.SYG SL PRN ×2 (02:26→06:44)
[2017-10-21] MEDS ORDERED: Lidocaine -MPF 1% 5 ML AMPUL INFILT ONE (03:54)
[2017-10-21] MEDS ORDERED: Levalbuterol 1 PUFF INHALER IH PRN (04:00)
[2017-10-21] MEDS: Famotidine 20 MG TABLET PO SCH ×2 (08:45→20:05)
[2017-10-21] MEDS: Aspirin 81 MG TAB.CHEW PO SCH (08:45)
[2017-10-21] MEDS ORDERED: NON-FORMULARY MEDICATION 1 EACH EACH (Rivaroxaban [Xarelto] 20 MG) PO SCH (09:00)
[2017-10-22] MEDS: Famotidine 20 MG TABLET PO SCH (08:44)
[2017-10-22] MEDS: Aspirin 81 MG TAB.CHEW PO SCH (08:44)
[2017-10-22 11:23] VITALS: BP 143/69
--- NOTE | 2017-10-22 14:20 | Discharge Summary ---
- NOTES TO OUTPATIENT PROVIDER Notes to Outpatient Provider: The patient was admitted with chest pain of a few hours duration. CT angiogram of her chest is negative. Her echo stress test was done in 2016it was normal. She has underlying GERD and fibromyalgia. Orders not resulted at time of discharge: Pending orders 10/21/17 00:45 ECG 12 lead ECG [ECG] Stat 10/21/17 14:31 EKG [ECG 12 lead ECG] [ECG] Stat Date of Encounter: 10/22/17 Time of Encounter: 14:18 - Discharge Diagnosis (1) Chest pain Priority: Primary Status: Acute Qualifiers: Chest pain type: unspecified Qualified Code(s): R07.9 - Chest pain, unspecified (2) Factor V Leiden mutation Priority: Secondary Status: Acute (3) GERD (gastroesophageal reflux disease) Priority: Secondary Status: Resolved Qualifiers: Esophagitis presence: without esophagitis Qualified Code(s): K21.9 - Gastro -esophageal reflux disease without esophagitis (4) Fibromyalgia Priority: Secondary Status: Acute Hospital course: Ms. Mckenna is a 57 year old female. The patient was admitted with chest pain of a few hours duration. CT angiogram of her chest is negative. Her echo stress test was done in 2017it was normal. She has underlying GERD and fibromyalgia. On the day of discharge: She feels good. Her chest pain is gone. Denies dyspnea, coughing and wheezing. Denies abdominal pain. She has normal urination. Follow-up with primary care physician. Discharge discussed with: patient, family, nurse - Time Spent with Patient Total time spent providing and/or coordinating discharge services: Less than 30 minutes - Discharge Medications Home Medications: Amitriptyline [Elavil] 50 mg PO HS 09/15/16 [History] Atorvastatin [Lipitor] 40 mg PO HS 09/15/16 [History] Fluticasone/Vilanterol [Breo Ellipta 200-25 Mcg INH] 1 puff IH DAILY 09/15/16 [ History] Levalbuterol Tartrate [Xopenex Hfa] 2 puff IH Q6H PRN 09/15/16 [History] Metoprolol [Lopressor] 25 mg PO BID 09/15/16 [History] Ondansetron HCl [Zofran] 4 mg PO Q8H PRN 09/15/16 [History] OxyCODONE/APAP 10/325 [Percocet 10/325 MG] 1 each PO Q4HR PRN 09/15/16 [History] Rivaroxaban [Xarelto] 20 mg PO DAILY 09/15/16 [History] Sertraline [Zoloft] 100 mg PO DAILY 09/15/16 [History] Umeclidinium [place] [Incruse Ellipta] 1 puff IH DAILY 09/15/16 [History] Zolpidem [Ambien] 10 mg PO HS 09/15/16 [History] Esomeprazole Magnesium [Nexium] 40 mg PO DAILY 10/21/17 [History] Levocetirizine Dihydrochloride 5 mg PO DAILY 10/21/17 [History] Lisinopril-HCTZ 10-12.5 [Prinzide 10-12.5] 1 tab PO DAILY 10/21/17 [History] Pregabalin [Lyrica] 50 mg PO DAILY 10/21/17 [History] Ranitidine HCl [Acid Veterinary Medicine Teacher] 150 mg PO BID 10/21/17 [History] Trazodone HCl 100 mg PO HS 10/21/17 [History] Allergies/Adverse Reactions: 3 Allergy/AdvReac Type Severity Reaction Status Date / Time codeine AdvReac Nausea Verified 10/21/17 10:20 morphine AdvReac Vomiting Verified 10/21/17 10:20 Date of admission: 10/21/17 00:25 Primary care physician: Tabitha Stallworth, Discharging clinician: Yovanny Rasmussen Anticipated date of discharge: 10/22/17 - Constitutional Vitals: Temp Pulse Resp BP Pulse Ox 98.4 F 58 18 143/69 97 10/22/17 12:45 10/22/17 12:45 10/22/17 12:45 10/22/17 12:45 10/22/17 12:45 General appearance: Present: cooperative, A&O X 3, answers questions appropriately - Respiratory Respiratory exam: Present: CTAB. Absent: rales, rhonchi, wheezes - Cardiovascular Cardiovascular exam: Present: RRR, +S1, +S2. Absent: diastolic murmur, gallop, rubs, systolic murmur - GI/Abdominal GI/Abdominal exam: Present: normal bowel sounds, soft. Absent: distended, tenderness - Patient Status Disposition: Home, Self-Care Condition: Good - Discharge Instructions Instructions: Chest Pain (DC), Chronic Hypertension (DC), Anemia (GEN) Follow Up With: Tabitha Stallworth MD [Primary Care Provider] - (left message for f/u appt, pt. aware) - Diet and Activity Activity: resume usual activities as tolerated Diet: advance to your usual diet - VTE Deep Vein Thrombosis/Pulmonary Embolism Present on Admission: No
--- NOTE | 2017-10-24 11:48 | Electrocardiograph Report ---
[place] [address] Test Date: 2017-10-21 Pat Name: Marium Mckenna Department: 110 Room: 2N06 Gender: F Beet End Supervisor: ADRI : 1960 Requested By: Yovanny Rasmussen Order Number: [id number] Reading MD: Pasha Jamison Measurements Intervals [place] Rate: 80 P: 33 IN: 156 QRS: -19 QRSD: 102 T: 61 QT: 393 QTc: 430 Interpretive Statements SINUS RHYTHM INCOMPLETE RIGHT BUNDLE BRANCH BLOCK VOLTAGE CRITERIA FOR LVH, CONSIDER NORMAL VARIANT NONSPECIFIC T-WAVE ABNORMALITY Electronically Signed On 10-24-2017 11:47:15 EDT by Pasha Jamison
--- NOTE | 2017-10-25 06:39 | Electrocardiograph Report ---
[address] [place], [place] [address] Test Date: 2017-10-21 Pat Name: Marium Mckenna Department: 110 Room: 2N06 Gender: F Chief Strategy Officer: : 1960 Requested By: Braulio Moise Order Number: [id number] Reading MD: Ambrose Ro Measurements Intervals [place] Rate: 61 P: 41 [place]: 171 QRS: -20 QRSD: 108 T: 29 QT: 434 QTc: 437 Interpretive Statements SINUS RHYTHM Electronically Signed On 10-25-2017 6:38:23 EDT by Ambrose Ro
== END 2017-10-22 15:08 | disposition home or self-care (01) | DRG 313 ==
LOC: 2NNU → SUATTDRO 10-21 00:25
PROVIDERS: ADMIT Internal Medicine; ATTEND Internal Medicine